=== PATIENT | male | born 1975 | race Two or more races ===

== ENCOUNTER 2018-11-25 12:23 | Emergency (ER) | payer SELFPAY ==
[~2018-11-25] VITALS: Ht 152.4 cm; Wt 70.8 kg
[2018-11-25 12:42] VITALS: BP 141/76
[2018-11-25] MEDS ORDERED: CEPH-264 PO (12:54)
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
[2018-11-25] MEDS ORDERED: DIPHTH,PERTUSS(ACELL),TET TOX 0.5 ML DISP.SYRIN. VAX IM ONE (13:00)
== END 2018-11-25 14:00 | disposition home or self-care (01) ==
LOC: ER 12:23
DX: S01.432A Puncture wound without foreign body of left cheek and temporomandibular area, initial encounter (principal); X95.01XA Assault by airgun discharge, initial encounter; Y93.89 Activity, other specified; Y92.89 Other specified places as the place of occurrence of the external cause; Y99.8 Other external cause status
CPT/HCPCS: 90471; 90715; 99284-25